=== PATIENT | male | born 1965 | race Caucasian/White ===

== ENCOUNTER 2016-05-02 10:45 | Outpatient (RCR) | payer OTHER ==
[~2016-05-02 10:45] MED LIST: AMBIEN CR6.25 MG PO; ANUSOL-HC SUPPO25 MG RC; CEPHALEXIN500 M1 PO; EFFE25TA; FLOMAX 0.40.4 MG/CAP PO; HYZAAR 12.5 MG-1 TAB PO; KLONOPIN 0.5MG0.5 MG PO; NEXIUM 40MG40 MG PO; NORCO 325 MG-7.1 TAB PO; PHENERGAN 25 TA25 MG PO; PREDNISONE20 MG PO; PROAIR HFA0.09 MG/AC IH; PROAIR HFA0.09 MG/AC PO; ROBAXIN 50500 MG/TAB PO; RT ADVAIR HFA 2312 G IH; RT SPIRIVA18 MCG IH; ULTRAM 50MG TAB50 MG PO; VALIUM 2MG T2 MG/TAB PO; ZOCOR 20MG20 MG PO; ZOLOFT 100MG100 MG PO
== END 2016-06-05 | disposition still patient (30) ==
LOC: MKS.ESL.PT
DX: M54.5 Low back pain (principal)
CPT/HCPCS: G0283-GP; G8990-GP; G8991-GP; G8992-GP